=== PATIENT | male | born 1965 | race Caucasian/White ===

== ENCOUNTER 2023-10-26 10:52 | Day surgery (SDC) | payer OTHER ==
[2023-10-26] VITALS (7 sets, daily range): BP systolic 108–123; BP diastolic 74–82; PULSE 52–65; TEMP 97.7
[~2023-10-26] VITALS: Ht 182.9 cm; Wt 107.7 kg
[~2023-10-26 10:52] MED LIST: 1/2 NS 1,000 ML IV SCH; LR 1,000 ML IV SCH; NS Flush 10 ML SYRINGE PRN ICA
[2023-10-26] MEDS ORDERED: HYZAAR 50-12.1 UDTAB PO (11:49)
[2023-10-26] MEDS ORDERED: COZAAR 50MG50 MG/TAB PO (11:49)
[2023-10-26] MEDS ORDERED: TOPROL XL 25MG25 MG PO (11:49)
[2023-10-26] MEDS ORDERED: ZYRTEC 10MG10 MG PO (11:50)
[2023-10-26] MEDS ORDERED: ELIQUIS 5MG PO (11:50)
[2023-10-26 12:00] LABS: HEMATOCRIT 44.6 % (42.0-52.0); HEMOGLOBIN 15.7 g/dl (13.5-18.0); MEAN CELL VOLUME 88 fl (80.0-100.0); MEAN CORPUSCULAR HEMOGLOBIN 31 pg (27-31); MEAN CORPUSCULAR HGB CONC 35 g/dl (33.0-37.0); MEAN PLATELET VOLUME 10.1 fl (7.4-10.4); PLATELET COUNT 247 K/mm3 (130-400); RED BLOOD COUNT 5.05 M/mm3 (4.20-5.60); REDCELL DISTRIBUTION WIDTH-CV 12.9 % (11.5-14.5)
[2023-10-26 12:16] LABS: CALCIUM 9.3 mg/dL (8.4-10.2); CREATININE, serum 0.88 mg/dL (0.72-1.25); MAGNESIUM 2.2 mg/dL (1.6-2.6); POTASSIUM 4.3 mEq/L (3.5-4.5)
[2023-10-26 12:25] LABS: INR 1.1 (0.8-3.0); PROTHROMBIN TIME 12.4 SECONDS (9.7-12.8)
[2023-10-26 12:27] LABS: PARTIAL THROMBOPLASTIN TIME 36.4 SECONDS (26.0-37.0)
[2023-10-26 13:02] LABS: THYROID STIMULATING HORMONE 1.1 uIU/mL (0.350-4.940)
[2023-10-26] MEDS ORDERED: Lidocaine PF 2% (20 MG/ML) 5 ML VIAL ONE (13:22)
--- NOTE | 2023-10-26 16:29 | NUR ---
PT TOLERATED RECOVERY PERIOD WELL. VS REMAINED WITHIN NORMAL LIMITS. PT VERBALIZED UNDERSTANDING OF DISCHARGE INSTRUCTIONS. IV DISCONTINUED. PT ASSISTED TO MAIN LOBBY VIA WHEELCHAIR. PT REMAINED FREE FROM ACUTE CONCERNS AND COMPLAINTS.
[2023-10-26] MEDS ORDERED: NS Flush 10 ML SYRINGE BID ICA SCH ×2 (21:00)
== END 2023-10-26 16:00 | disposition home or self-care (01) ==
LOC: COL.CAR 10:52
PROVIDERS: Internal Medicine Cardiovascular Disease
DX: I48.91 Unspecified atrial fibrillation (principal)
CPT/HCPCS: J2704; J7120

== ENCOUNTER 2023-11-01 13:20 | Inpatient (IN) | payer OTHER ==
[~2023-11-01 13:20] MED LIST changes: -1/2 NS 1,000 ML IV SCH; +COZAAR 50MG50 MG/TAB PO; +ELIQUIS 5MG PO; +HYZAAR 50-12.1 UDTAB PO; -LR 1,000 ML IV SCH; -NS Flush 10 ML SYRINGE PRN ICA; +TOPROL XL 25MG25 MG PO; +ZYRTEC 10MG10 MG PO
[2023-11-07] VITALS (9 sets, daily range): BP systolic 112–130; BP diastolic 75–83; PULSE 44–68; TEMP 97.6–98
[2023-11-07] MEDS ORDERED: MOBIC15 MG PO (09:02)
[2023-11-07] MEDS ORDERED: Acetaminophen 325 MG TAB PO PRN (09:30)
[2023-11-07] MEDS ORDERED: Temazepam 15 MG CAP PO PRN (09:30)
[2023-11-07] MEDS ORDERED: Docusate Sodium 100 MG CAP PO PRN (09:30)
[2023-11-07 10:01] LABS: BASO # 0.1 K/mm3 (0.0-0.2); BASO % 1.1 % (0.0-2.0); EOS # 0.2 K/mm3 (0.0-0.7); EOS % 4.6 % (0.0-4.0); GRAN # 2.2 K/mm3 (1.4-6.5); GRAN % 46.8 % (42.2-75.2); HEMOGLOBIN 13.6 g/dl (13.5-18.0); LYMPH # 1.7 K/mm3 (1.2-3.4); LYMPH % 36.2 % (20.0-51.0); MEAN CELL VOLUME 89 fl (80.0-100.0); MEAN CORPUSCULAR HEMOGLOBIN 31 pg (27-31); MEAN CORPUSCULAR HGB CONC 35 g/dl (33.0-37.0); MEAN PLATELET VOLUME 9.6 fl (7.4-10.4); MONO # 0.5 K/mm3 (0.1-0.6); MONO % 10.9 % (1.7-9.3); PLATELET COUNT 226 K/mm3 (130-400); REDCELL DISTRIBUTION WIDTH-CV 12.9 % (11.5-14.5)
[2023-11-07 10:05] LABS: INR 1.1 (0.8-3.0); PROTHROMBIN TIME 12.2 SECONDS (9.7-12.8)
[2023-11-07 10:20] LABS: ALBUMIN 3.7 g/dL (3.4-4.8); BILIRUBIN,TOTAL 0.9 mg/dL (0.2-1.2); CALCIUM 8.9 mg/dL (8.4-10.2); CREATININE, serum 0.8 mg/dL (0.72-1.25); POTASSIUM 4.1 mEq/L (3.5-4.5); TOTAL PROTEIN 6.3 g/dl (6.2-8.1)
--- NOTE | 2023-11-07 11:34 | NUR ---
PATIENT ARRIVED TO MEDICAL FLOOR AT APPROX 0900. PATIENT AMBULATED TO FLOOR, WITH PATIENT. INTAKE ASSESSMENT COMPLETE. MED REC COMPLETE. IV STARTED TO LEFT WRIST. NO REDNESS, DRAINAGE, OR EDEMA NOTED. PATIENT DENIES PAIN OR DISCOMFORT. THIS RN ORIENTED PATIENT TO ROOM. CALL LIGHT WITHIN REACH. TELEMETRY ON.
[2023-11-07] MEDS ORDERED: Cetirizine 10 MG TAB PO PRN (12:45)
--- NOTE | 2023-11-07 14:41 | NUR ---
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 He reports to live with his in [place]. He sees FARHEEN Loja for PCP needs and obtains medications from [facility] pharmacy with no difficulties. He confirmed to have [employer] insurance. He is independent with [employer] and uses a CPAP for DME. He does not have a DPOA-HC, but is agreeable to his being NOK. No further needs. Discharge Plan: home
[2023-11-07] MEDS ORDERED: Apixaban 5 MG TABLET PO SCH (21:00)
--- NOTE | 2023-11-07 21:00 | NUR ---
Patient resting in bed. Denies any pain or needs at this time. Assessment complete. IV in left wrist flushes easily without complications. Call light and personal items in reach. Bed in low position.
[2023-11-08] VITALS (19 sets, daily range): BP systolic 108–153; BP diastolic 68–82; PULSE 42–78; TEMP 97.6–9803
[2023-11-08 06:53] LABS: HEMATOCRIT 39.6 % (42.0-52.0); HEMOGLOBIN 13.5 g/dl (13.5-18.0); MEAN CELL VOLUME 90 fl (80.0-100.0); MEAN CORPUSCULAR HEMOGLOBIN 31 pg (27-31); MEAN CORPUSCULAR HGB CONC 34 g/dl (33.0-37.0); PLATELET COUNT 234 K/mm3 (130-400); RED BLOOD COUNT 4.39 M/mm3 (4.20-5.60); REDCELL DISTRIBUTION WIDTH-CV 12.9 % (11.5-14.5)
[2023-11-08 07:02] LABS: CALCIUM 8.7 mg/dL (8.4-10.2); CREATININE, serum 0.81 mg/dL (0.72-1.25); MAGNESIUM 2.1 mg/dL (1.6-2.6)
--- NOTE | 2023-11-08 08:08 | NUR ---
Patient laying in bed, A&Ox4. VSS HR chandrakant, doctors aware. IV CDI. NPO for a procedure. Denies pain and discomfort. Call light within reach
[2023-11-08] MEDS ORDERED: Regadenoson 0.08 MG/ML 5 ML SYRINGE IV SCH (08:52)
[2023-11-08] MEDS ORDERED: Meloxicam 7.5 MG TAB PO SCH (09:00)
[2023-11-08 10:13] LABS: EOSINOPHIL 2 % (0-4); LYMPHOCYTE 50 % (20.0-51.0); NEUTROPHILS 43 % (42.0-75.2)
[2023-11-08 10:14] LABS: PLATELET ESTIMATE NORMAL (NORMAL)
--- NOTE | 2023-11-08 19:28 | NUR ---
Attempted to call and notify Dr. Bar of 9 beat run of V-tach.
--- NOTE | 2023-11-08 19:50 | NUR ---
Patient resting in bed. Denies any needs. Snack and fresh water provided, denies any other needs at this time. Assessment complete. IV in left wrist flushes easliy without complications. Denies any symptoms of dizziness or feeling light headed. Call light and personal items in reach. Bed in low position.
--- NOTE | 2023-11-08 20:13 | NUR ---
Attempted to call Dr. Bar at this time for heart rate in the mid 40s and scheduled to recieved sotalol as well as for the 9 beat run of V-tach. Will call tamika later.
--- NOTE | 2023-11-08 20:33 | NUR ---
Dr. Bar called and notified of patient 9 beat run of V-tach at 1905 with heart rate reaching 130s and current heart rate of 46 and scheduled to recieved 40mg Sotalol. Recieved orders to hold dose of Sotalol this evening.
[2023-11-09 01:00] VITALS: BP_SYST 125
[2023-11-09 04:00] VITALS: BP 116/69; PULSE 47; TEMP 98.1
[2023-11-09 05:00] VITALS: BP_SYST 116
[2023-11-09 06:57] LABS: HEMATOCRIT 40.6 % (42.0-52.0); MEAN CELL VOLUME 89 fl (80.0-100.0); MEAN CORPUSCULAR HEMOGLOBIN 31 pg (27-31); MEAN CORPUSCULAR HGB CONC 35 g/dl (33.0-37.0); MEAN PLATELET VOLUME 9.7 fl (7.4-10.4); PLATELET COUNT 244 K/mm3 (130-400); RED BLOOD COUNT 4.58 M/mm3 (4.20-5.60); REDCELL DISTRIBUTION WIDTH-CV 12.7 % (11.5-14.5)
[2023-11-09 07:25] VITALS: BP 148/79; PULSE 52; TEMP 97.8
[2023-11-09 07:43] LABS: CALCIUM 8.7 mg/dL (8.4-10.2); CREATININE, serum 0.83 mg/dL (0.72-1.25); MAGNESIUM 2.2 mg/dL (1.6-2.6)
[2023-11-09 08:00] VITALS: BP_SYST 148
[2023-11-09 08:04] LABS: EOSINOPHIL 2 % (0-4); LYMPHOCYTE 30 % (20.0-51.0); NEUTROPHILS 55 % (42.0-75.2)
[2023-11-09 08:05] LABS: PLATELET ESTIMATE NORMAL (NORMAL)
[2023-11-09] MEDS ORDERED: TAMBOCOR 1100 MG/TAB PO (10:11)
[2023-11-09] MEDS ORDERED: COZAAR 50MG50 MG/TAB PO (10:12)
[2023-11-09 11:30] VITALS: BP 146/87; PULSE 46; TEMP 97.5
== END 2023-11-09 12:00 | disposition home or self-care (01) | DRG 262 ==
LOC: MEDICAL 11-07 08:10
PROVIDERS: ADMIT Internal Medicine Cardiovascular Disease
PROC: 0JH602Z Insertion of Monitoring Device into Chest Subcutaneous Tissue and Fascia, Open Approach (ICD-10-PCS; principal; 2023-11-08)
DX: I48.0 Paroxysmal atrial fibrillation (principal); I35.1 Nonrheumatic aortic (valve) insufficiency; I47.20 Ventricular tachycardia, unspecified; Z79.899 Other long term (current) drug therapy; Z79.01 Long term (current) use of anticoagulants
CPT/HCPCS: A9500-JZ; J2785